=== PATIENT | male | born 1960 | race Native Hawaiian/Other Pacific Islander ===

== ENCOUNTER 2017-04-27 17:03 | Emergency (ER) | payer OTHER ==
[~2017-04-27] VITALS: Ht 170.2 cm; Wt 79.4 kg
[2017-04-27 17:13] VITALS: TEMP 97.7
[2017-04-27 18:49] LABS: PLATELET COUNT 267 K/uL (142-355)
[2017-04-27 19:29] LABS: POTASSIUM 3.8 mmol/L (3.6-5.2); SODIUM 134 mmol/L (136-145)
[2017-04-27 20:24] VITALS: BP 142/89
== END 2017-04-27 20:24 | disposition home or self-care (01) ==
LOC: ED 17:03
PROVIDERS: Specialist
DX: S61.206A Unspecified open wound of right little finger without damage to nail, initial encounter (principal); L08.9 Local infection of the skin and subcutaneous tissue, unspecified
CPT/HCPCS: 36415; 80048; 85027; 85651; 96365; 99284; J0744

== ENCOUNTER 2017-04-30 11:00 | Inpatient (IN) | payer OTHER ==
[~2017-04-30] VITALS: Ht 170.2 cm; Wt 67.1 kg
[2017-04-30 15:25] LABS: PLATELET COUNT 309 K/uL (142-355)
[2017-04-30 15:39] LABS: POTASSIUM 4.4 mmol/L (3.6-5.2); SODIUM 134 mmol/L (136-145)
[2017-04-30 16:15] VITALS: BP 144/97; TEMP 98.7; Ht 170.2 cm; Wt 67.1 kg
[2017-04-30] MEDS ORDERED: CIPR500T PO (19:30)
[2017-04-30] MEDS ORDERED: BACTRIM1 TAB PO (19:35)
[2017-04-30 20:00] VITALS: BP 128/83; TEMP 98.1
[2017-05-01 00:06] VITALS: BP 122/78; TEMP 98.2
[2017-05-01 04:00] VITALS: BP 143/89; TEMP 98
[2017-05-01 08:00] VITALS: BP 141/98; TEMP 98
[2017-05-01 10:57] LABS: PLATELET COUNT 344 K/uL (142-355)
[2017-05-01 11:06] LABS: POTASSIUM 4.3 mmol/L (3.6-5.2); SODIUM 132 mmol/L (136-145)
[2017-05-01 12:00] VITALS: BP 144/99; TEMP 97.8
[2017-05-01 16:00] VITALS: BP 137/92; TEMP 98
[2017-05-01 20:00] VITALS: BP 132/89; TEMP 97
[2017-05-02] VITALS: BP 125/79; TEMP 97
[2017-05-02 03:54] LABS: PLATELET COUNT 313 K/uL (142-355)
[2017-05-02 04:00] VITALS: BP 133/91; TEMP 97.7
[2017-05-02 04:07] LABS: POTASSIUM 4.4 mmol/L (3.6-5.2); SODIUM 134 mmol/L (136-145)
[2017-05-02 08:30] VITALS: BP 128/93; TEMP 98.8
[2017-05-02 10:19] VITALS: BP 128/93; TEMP 98.8
[2017-05-02 16:00] VITALS: BP 123/75; TEMP 98.3
[2017-05-02 20:00] VITALS: BP 138/88; TEMP 97.9
[2017-05-03] VITALS: BP 141/93; TEMP 98
[2017-05-03 04:00] VITALS: BP 132/90; TEMP 97.9
[2017-05-03 06:02] LABS: PLATELET COUNT 343 K/uL (142-355)
[2017-05-03 06:07] LABS: POTASSIUM 4.3 mmol/L (3.6-5.2); SODIUM 139 mmol/L (136-145)
[2017-05-03 08:19] VITALS: BP 137/89; TEMP 97.5
[2017-05-03 12:00] VITALS: BP 140/88; TEMP 98.3
[2017-05-03 16:00] VITALS: BP 139/92; TEMP 98.1
[2017-05-03 20:18] VITALS: BP 147/94; TEMP 98.6
[2017-05-04] VITALS: BP 149/95; TEMP 98.4
[2017-05-04 04:00] VITALS: BP 162/92; TEMP 97.8
[2017-05-04 04:57] LABS: PLATELET COUNT 364 K/uL (142-355)
[2017-05-04 05:14] LABS: POTASSIUM 4.1 mmol/L (3.6-5.2); SODIUM 137 mmol/L (136-145)
[2017-05-04 08:00] VITALS: BP 152/108; TEMP 98.7
[2017-05-04 12:00] VITALS: BP 137/89; TEMP 98.3
== END 2017-05-04 16:13 | disposition home or self-care (01) | DRG 603 ==
LOC: MED/SURG 11:00
PROVIDERS: Emergency Medicine; ADMIT Nurse Practitioner
PROC: 0H9FXZZ Drainage of Right Hand Skin, External Approach (ICD-10-PCS; principal; 2017-05-02)
DX: L03.113 Cellulitis of right upper limb (principal); B95.62 Methicillin resistant Staphylococcus aureus infection as the cause of diseases classified elsewhere; I10 Essential (primary) hypertension
CPT/HCPCS: 36415; 80048; 80053; 80202; 85027; 85651; 86140; 87040; 87070; 87077; 87185; 87186; 87205; 96365; 96366; 96367; 96374; 96375; J2270; Q9963

== ENCOUNTER → 2017-05-21 08:29 | Outpatient (CLI) | payer OTHER ==
[~2017-05-21 08:29] MED LIST: BACTRIM1 TAB PO; CIPR500T PO
== END | disposition home or self-care (01) ==
LOC: AMB 08:29
DX: S01.111A Laceration without foreign body of right eyelid and periocular area, initial encounter (principal)

== ENCOUNTER 2019-01-28 13:34 | Emergency (ER) | payer OTHER ==
[~2019-01-28] VITALS: Ht 170.2 cm; Wt 79.4 kg
[2019-01-28 13:42] VITALS: TEMP 98.1
[2019-01-28 15:45] VITALS: BP 127/76
== END 2019-01-28 15:45 | disposition home or self-care (01) ==
LOC: ED 13:34
DX: M16.11 Unilateral primary osteoarthritis, right hip (principal)
CPT/HCPCS: 96372; 99283; J1100; J1885

== ENCOUNTER 2019-04-28 09:51 | Outpatient (CLI) | payer OTHER | END 2019-04-28 19:07 | disposition home or self-care (01) | LOC: RAD 09:51 | DX: M1A.9XX0 Chronic gout, unspecified, without tophus (tophi) (principal); R41.3 Other amnesia ==

== ENCOUNTER 2021-03-18 20:57 | Emergency (ER) | payer OTHER ==
[~2021-03-18] VITALS: Ht 170.2 cm; Wt 79.4 kg
[2021-03-18 21:45] VITALS: BP 136/88; TEMP 98.4
== END 2021-03-18 21:45 | disposition home or self-care (01) ==
LOC: ED 20:57
DX: K59.09 Other constipation (principal)
CPT/HCPCS: 99282

== ENCOUNTER 2021-04-25 11:24 | Outpatient (CLI) | payer OTHER | END 2021-04-25 23:59 | disposition home or self-care (01) | LOC: RESP 11:24 | PROVIDERS: ATTEND Nurse Practitioner Family | DX: I10 Essential (primary) hypertension (principal); M54.89 Other dorsalgia; E78.49 Other hyperlipidemia; F32.9 Major depressive disorder, single episode, unspecified; R00.0 Tachycardia, unspecified | CPT/HCPCS: 93005 ==